=== PATIENT | female | born 1960 | race Caucasian/White ===

== ENCOUNTER 2017-09-06 17:21 | Emergency (ER) | payer OTHER ==
[2017-09-06] MEDS: KETOROLAC 60 MG INJ IM (20:10)
== END 2017-09-06 22:34 | disposition home or self-care (01) ==
LOC: FTE 17:21
DX: M54.9 Dorsalgia, unspecified (principal); I10 Essential (primary) hypertension; J45.909 Unspecified asthma, uncomplicated
CPT/HCPCS: 72100; 73510; 76856; 96372; 99285-25

== ENCOUNTER → 2018-03-24 | Outpatient (CLI) | payer OTHER | END | disposition home or self-care (01) | LOC: HKI 14:48 | DX: M17.12 Unilateral primary osteoarthritis, left knee (principal); I10 Essential (primary) hypertension; E78.5 Hyperlipidemia, unspecified; F32.9 Major depressive disorder, single episode, unspecified; J45.909 Unspecified asthma, uncomplicated | CPT/HCPCS: 73564; 73564-LT ==

== ENCOUNTER → 2018-06-27 | Outpatient (CLI) | payer OTHER | END | disposition home or self-care (01) | LOC: HKI 10:36 | DX: Z01.818 Encounter for other preprocedural examination (principal) | CPT/HCPCS: Z7500 ==

== ENCOUNTER 2018-06-29 07:48 | Inpatient (IN) | payer OTHER ==
[~2018-06-29 07:48] MED LIST: ETOMIDATE 20 MG INJ
[2018-06-29] MEDS ORDERED: MAGNESIUM HYDROXIDE 30ML CUP PO (10:30)
[2018-06-29] MEDS ORDERED: NA PHOSPHATE/BIPHOS 133 ML ENEMA PR (10:30)
[2018-06-29] MEDS ORDERED: BISACODYL 10 MG SUPP PR (10:30)
[2018-06-29] MEDS ORDERED: oxyCODONE 5 MG TAB PO (10:30)
[2018-06-29] MEDS ORDERED: NALOXONE (0.4 MG/ML) INJ IV (10:30)
[2018-06-29] MEDS ORDERED: BETHANECHOL 25 MG TAB PO (10:30)
[2018-06-29] MEDS ORDERED: DIPHENHYDRAMINE 50 MG INJ IV ×2 (10:30→13:00)
[2018-06-29] MEDS: CEFAZOLIN 1 GM/50 ML (PMX) 50 ML IVPB ×3 (10:38→22:34)
[2018-06-29] MEDS: TRANEXAMIC ACID 1,000 MG in NS 100 ML PRE-OP X1 IVPB (10:43)
[2018-06-29] MEDS ORDERED: morphine SULFATE/PF (10 MG/10 ML) INJ (10:43)
[2018-06-29] MEDS ORDERED: MIDAZOLAM 1 MG/ML 2 ML INJ (10:43)
[2018-06-29] MEDS: BACITRACIN 50000 UNITS INJ (11:23)
[2018-06-29] MEDS: POLYMYXIN B 500000 UNIT INJ IRR (11:24)
[2018-06-29] MEDS: TRANEXAMIC ACID 1,000 MG in NS 100 ML INTRA-OP X1 IVPB (11:54)
[2018-06-29] MEDS ORDERED: POLYMYXIN B 500000 UNIT INJ (12:40)
[2018-06-29] MEDS ORDERED: CEFAZOLIN 1 GM INJ (12:49)
[2018-06-29] MEDS ORDERED: LIDOCAINE 2% (SDV) 5 ML INJ (12:49)
[2018-06-29] MEDS ORDERED: PROPOFOL 20 ML (12:49)
[2018-06-29] MEDS ORDERED: METOCLOPRAMIDE 10 MG INJ IV (13:00)
[2018-06-29] MEDS ORDERED: MEPERIDINE 25 MG INJ IV (13:00)
[2018-06-29] MEDS ORDERED: ALBUTEROL 0.083% (NEB) 2.5 MG/3 ML AMP HHN ×2 (13:00→15:00)
[2018-06-29] MEDS ORDERED: FENTAnyl 50 MCG/ML VIAL IV (13:00)
[2018-06-29] MEDS ORDERED: ONDANSETRON 4 MG INJ IV (13:00)
[2018-06-29] MEDS ORDERED: HYDROmorphONE 1 MG/5 ML IV SYRINGE IV ×2 (13:00)
[2018-06-29] MEDS: ONDANSETRON 4 MG INJ IV ×3 (13:22→22:34)
[2018-06-29] MEDS: ASPIRIN 81 MG TAB PO ×2 (13:23→20:51)
[2018-06-29] MEDS: DOCUSATE SODIUM 100 MG CAP PO (13:23)
[2018-06-29] MEDS ORDERED: KNEE PAIN COCKTAIL (CEFUROXIME) INJ (13:30)
[2018-06-29] MEDS: LACTATED RINGER'S 1,000 ML IV* (14:30)
[2018-06-29] MEDS: SOD CHLORIDE 0.9% 1,000 ML IV ×2 (14:48→22:34)
[2018-06-29] MEDS: oxyCODONE 5 MG TAB PO (18:34)
[2018-06-29] MEDS: ATORVASTATIN 40 MG TAB PO (20:51)
[2018-06-29] MEDS: GABAPENTIN 300 MG CAP PO (20:51)
[2018-06-30 05:12] LABS: ADD MAN DIFF? NO; BASOPHIL # 0.1 10^3/ul (0.0-0.1); BASOPHILS % 0.5 % (0.0-2.0); EOSINOPHILS # 0.2 10^3/ul (0.0-0.5); HEMATOCRIT 31.8 % (37.0-47.0); LYMPHOCYTES # 0.8 10^3/ul (0.8-2.9); LYMPHOCYTES % 8.5 % (15.0-51.0); MEAN CORPUSCULAR HEMOGLOBIN 27.1 pg (29.0-33.0); MEAN CORPUSCULAR HGB CONC 31.4 g/dl (32.0-37.0); MEAN CORPUSCULAR VOLUME 86.2 fl (82.0-101.0); MEAN PLATELET VOLUME 11.4 fl (7.4-10.4); MONOCYTE # 0.7 10^3/ul (0.3-0.9); MONOCYTES % 7.6 % (0.0-11.0); NEUTROPHIL # 7.4 10^3/ul (1.6-7.5); NEUTROPHILS % 81.1 % (39.0-77.0); PLATELET COUNT 165 10^3/UL (140-415); RED BLOOD COUNT 3.69 10^6/ul (4.20-5.40); RED CELL DISTRIBUTION WIDTH 13.9 % (11.5-14.5)
[2018-06-30 05:12] LABS: WHITE BLOOD COUNT 9.1 10^3/ul (4.8-10.8)
[2018-06-30] MEDS: ONDANSETRON 4 MG INJ IV ×2 (05:33→13:17)
[2018-06-30] MEDS: CEFAZOLIN 1 GM/50 ML (PMX) 50 ML IVPB (05:33)
[2018-06-30] MEDS: oxyCODONE 5 MG TAB PO ×5 (05:33→21:20)
[2018-06-30 05:41] LABS: ANION GAP 8 (5-13); BLOOD UREA NITROGEN 15 mg/dl (7-20); CALCIUM 8.7 mg/dl (8.4-10.2); CARBON DIOXIDE 28 mmol/L (21-31); CHLORIDE 107 mmol/L (97-110); CREATININE 0.41 mg/dl (0.44-1.00); Estimated GFR > 60 mL/min (>60); GLUCOSE 143 mg/dl (70-220); POTASSIUM 3.7 mmol/L (3.5-5.1); SODIUM 143 mmol/L (135-144)
[2018-06-30] MEDS: GABAPENTIN 100 MG CAP PO (09:15)
[2018-06-30] MEDS: ASPIRIN 81 MG TAB PO ×2 (09:15→20:44)
[2018-06-30] MEDS: LISINOPRIL 20 MG TAB PO (09:15)
[2018-06-30] MEDS: DOCUSATE SODIUM 100 MG CAP PO ×2 (09:15→20:43)
[2018-06-30] MEDS: FERROUS FUMARATE (SR) TAB PO ×2 (09:15→20:44)
[2018-06-30] MEDS: SERTRALINE 50 MG TAB PO (09:16)
[2018-06-30] MEDS: CELECOXIB 200 MG CAP PO ×2 (09:16→20:43)
[2018-06-30] MEDS: GABAPENTIN 300 MG CAP PO ×3 (09:16→20:43)
[2018-06-30] MEDS: SOD CHLORIDE 0.9% 1,000 ML IV ×2 (11:23→23:53)
[2018-06-30] MEDS: ATORVASTATIN 40 MG TAB PO (20:43)
[2018-07-01] MEDS: oxyCODONE 5 MG TAB PO ×2 (01:41→09:09)
[2018-07-01 05:26] LABS: ADD MAN DIFF? NO
[2018-07-01 05:31] LABS: WHITE BLOOD COUNT 10.9 10^3/ul (4.8-10.8)
[2018-07-01 05:31] LABS: BASOPHIL # 0.1 10^3/ul (0.0-0.1); BASOPHILS % 0.6 % (0.0-2.0); EOSINOPHILS # 0.3 10^3/ul (0.0-0.5); EOSINOPHILS % 2.8 % (0.0-7.0); HEMATOCRIT 32.7 % (37.0-47.0); HEMOGLOBIN 10.4 g/dl (12.0-16.0); LYMPHOCYTES # 1.9 10^3/ul (0.8-2.9); LYMPHOCYTES % 17.4 % (15.0-51.0); MEAN CORPUSCULAR HEMOGLOBIN 27.5 pg (29.0-33.0); MEAN CORPUSCULAR HGB CONC 31.8 g/dl (32.0-37.0); MEAN CORPUSCULAR VOLUME 86.5 fl (82.0-101.0); MEAN PLATELET VOLUME 11.7 fl (7.4-10.4); MONOCYTE # 1.3 10^3/ul (0.3-0.9); MONOCYTES % 11.9 % (0.0-11.0); NEUTROPHIL # 7.3 10^3/ul (1.6-7.5); NEUTROPHILS % 66.9 % (39.0-77.0); PLATELET COUNT 201 10^3/UL (140-415); RED BLOOD COUNT 3.78 10^6/ul (4.20-5.40); RED CELL DISTRIBUTION WIDTH 14.1 % (11.5-14.5)
[2018-07-01 06:34] LABS: ANION GAP 8 (5-13); BLOOD UREA NITROGEN 12 mg/dl (7-20); CARBON DIOXIDE 30 mmol/L (21-31); CHLORIDE 101 mmol/L (97-110); CREATININE 0.64 mg/dl (0.44-1.00); Estimated GFR > 60 mL/min (>60); GLUCOSE 119 mg/dl (70-220); POTASSIUM 3.8 mmol/L (3.5-5.1); SODIUM 139 mmol/L (135-144)
[2018-07-01] MEDS: PANTOPRAZOLE (EC) 40 MG TAB PO (07:25)
[2018-07-01] MEDS: DOCUSATE SODIUM 100 MG CAP PO ×2 (09:08→21:00)
[2018-07-01] MEDS: ASPIRIN 81 MG TAB PO ×2 (09:08→21:00)
[2018-07-01] MEDS: SERTRALINE 50 MG TAB PO (09:09)
[2018-07-01] MEDS: GABAPENTIN 300 MG CAP PO ×2 (09:09→21:01)
[2018-07-01] MEDS: LISINOPRIL 20 MG TAB PO (09:09)
[2018-07-01] MEDS: FERROUS FUMARATE (SR) TAB PO ×2 (09:09→22:02)
[2018-07-01] MEDS: CELECOXIB 200 MG CAP PO ×2 (09:10→21:00)
[2018-07-01] MEDS ORDERED: HYDROCODONE/APAP (5/325) TAB PO (10:30)
[2018-07-01] MEDS: SOD CHLORIDE 0.9% 1,000 ML IV (12:23)
[2018-07-01] MEDS: HYDROCODONE/APAP (10/325) TAB PO ×3 (13:09→21:03)
[2018-07-01] MEDS: SENNA/DOCUSATE NA (8.6MG/50MG) TAB PO (13:10)
[2018-07-01] MEDS: ATORVASTATIN 40 MG TAB PO (21:01)
[2018-07-02] MEDS: SOD CHLORIDE 0.9% 1,000 ML IV ×2 (00:53→12:55)
[2018-07-02 05:26] LABS: ADD MAN DIFF? NO
[2018-07-02 05:28] LABS: BASOPHIL # 0.1 10^3/ul (0.0-0.1); BASOPHILS % 0.7 % (0.0-2.0); EOSINOPHILS # 0.4 10^3/ul (0.0-0.5); EOSINOPHILS % 3.9 % (0.0-7.0); HEMATOCRIT 31.2 % (37.0-47.0); HEMOGLOBIN 9.9 g/dl (12.0-16.0); LYMPHOCYTES # 1.6 10^3/ul (0.8-2.9); LYMPHOCYTES % 17.4 % (15.0-51.0); MEAN CORPUSCULAR HEMOGLOBIN 27.3 pg (29.0-33.0); MEAN CORPUSCULAR HGB CONC 31.7 g/dl (32.0-37.0); MEAN CORPUSCULAR VOLUME 86.2 fl (82.0-101.0); MEAN PLATELET VOLUME 11.5 fl (7.4-10.4); MONOCYTES % 10.5 % (0.0-11.0); NEUTROPHIL # 6.3 10^3/ul (1.6-7.5); PLATELET COUNT 196 10^3/UL (140-415); RED BLOOD COUNT 3.62 10^6/ul (4.20-5.40); RED CELL DISTRIBUTION WIDTH 14.1 % (11.5-14.5)
[2018-07-02 05:28] LABS: WHITE BLOOD COUNT 9.4 10^3/ul (4.8-10.8)
[2018-07-02] MEDS: PANTOPRAZOLE (EC) 40 MG TAB PO (06:04)
[2018-07-02 06:06] LABS: ANION GAP 8 (5-13); BLOOD UREA NITROGEN 12 mg/dl (7-20); CALCIUM 9.1 mg/dl (8.4-10.2); CARBON DIOXIDE 32 mmol/L (21-31); CHLORIDE 100 mmol/L (97-110); CREATININE 0.58 mg/dl (0.44-1.00); Estimated GFR > 60 mL/min (>60); GLUCOSE 129 mg/dl (70-220); POTASSIUM 3.8 mmol/L (3.5-5.1); SODIUM 140 mmol/L (135-144)
[2018-07-02] MEDS: CELECOXIB 200 MG CAP PO (08:51)
[2018-07-02] MEDS: FERROUS FUMARATE (SR) TAB PO (08:51)
[2018-07-02] MEDS: ASPIRIN 81 MG TAB PO (08:51)
[2018-07-02] MEDS: DOCUSATE SODIUM 100 MG CAP PO (08:51)
[2018-07-02] MEDS: GABAPENTIN 300 MG CAP PO (08:52)
[2018-07-02] MEDS: SERTRALINE 50 MG TAB PO (08:53)
[2018-07-02] MEDS: LISINOPRIL 20 MG TAB PO (08:53)
[2018-07-02] MEDS: HYDROCODONE/APAP (10/325) TAB PO ×2 (08:58→13:40)
[2018-07-02] MEDS: LACTULOSE 30ML CUP PO (11:14)
[2018-07-02] MEDS: FLUTICASONE/VILANTEROL 200-25 INH DEVICE INH (11:14)
[2018-07-02] MEDS ORDERED: MONTELUKAST 10 MG TAB PO (21:00)
== END 2018-07-02 20:30 | DRG 470 ==
LOC: REC 07:48 → MS1 13:47
PROC: 0SRD069 Replacement of Left Knee Joint with Oxidized Zirconium on Polyethylene Synthetic Substitute, Cemented, Open Approach (ICD-10-PCS; principal; 2018-06-29 10:00)
DX: M17.12 Unilateral primary osteoarthritis, left knee (principal); I10 Essential (primary) hypertension; E66.9 Obesity, unspecified; E78.5 Hyperlipidemia, unspecified; F32.9 Major depressive disorder, single episode, unspecified; R73.03 Prediabetes; K59.00 Constipation, unspecified; J45.909 Unspecified asthma, uncomplicated; Z68.32 Body mass index [BMI] 32.0-32.9, adult
CPT/HCPCS: 73560; 80048; 85025; 86850; 86900; 86901; 88304; 88311; 90686; 97110; 97116; 97161; 97166; 97530; 97535

== ENCOUNTER → 2018-07-12 | Outpatient (CLI) | payer OTHER | END | disposition home or self-care (01) | LOC: HKI 13:56 | DX: Z47.1 Aftercare following joint replacement surgery (principal); Z96.652 Presence of left artificial knee joint ==

== ENCOUNTER → 2018-08-12 | Outpatient (CLI) | payer OTHER | END | disposition home or self-care (01) | LOC: HKI 10:24 | DX: Z47.1 Aftercare following joint replacement surgery (principal); Z96.652 Presence of left artificial knee joint | CPT/HCPCS: 73562; 73562-LT ==

== ENCOUNTER → 2018-09-15 | Outpatient (CLI) | payer OTHER | END | disposition home or self-care (01) | LOC: HKI 11:17 | DX: Z47.1 Aftercare following joint replacement surgery (principal); Z96.652 Presence of left artificial knee joint | CPT/HCPCS: 73562; 73562-LT ==